=== PATIENT | female | born 1980 | race Asian ===

== ENCOUNTER 2016-07-08 18:17 | Emergency (ER) | payer BC ==
[~2016-07-08] VITALS: Ht 152.4 cm; Wt 70.0 kg
[2016-07-08 18:19] VITALS: BP 158/84; PULSE 74; RESP 15; TEMP 98.1; O2SAT 98
[2016-07-08] MEDS ORDERED: METOCLOPRAMIDE HCL 10 MG/2 ML VIAL IM ONE (19:00)
[2016-07-08] MEDS ORDERED: CYCLOBENZAPRINE HCL 10 MG TAB PO ONE (19:00)
--- NOTE | 2016-07-08 19:00 | PD ---
HPI Chief Complaint: Headache Time Seen by Provider: 18:56 Travel History International Travel<30 days: No Contact w/Intl Traveler<30days: No Traveled to known affect area: No History of Present Illness HPI Patient comes in complaining of right occipital headache that began 5 days ago. Patient denies any trauma, photophobia, phonophobia, change in vision, dizziness, , change in bladder, numbness tingling anywhere, or fever. Patient states that she did have some associated nausea and vomiting that resolved 2 days ago however she continues to have the headache. Headache is constant, but waxes and wanes in intensity and occasionally radiates to her right frontal lobe. Patient has tried using Aleve and ibuprofen with no improvement of her symptoms. Patient denies any history of headaches. Denies any family history of migraines or aneurysms.. PFSH Past Medical History Medical History: Denies Significant Hx Influenza Vaccination: No ?: Not LMP: 06/30/16 Past Surgical History Surgical History: No Previous Surgery Social History Alcohol Use: Yes (occ) Tobacco Use: No Substance Use: No Allergies-Medications (Allergen,Severity, Reaction): Coded Allergies: No Known Allergies (Unverified , 07/08/16) Reported Meds & Prescriptions Reported Meds & Active Scripts Active No Active Prescriptions or Reported Medications Review of Systems Except as stated in HPI: all other systems reviewed are Neg Physical Exam Narrative GENERAL: Well-developed, well nourished, in no acute distress, and non-ill appearing. SKIN: Focused skin assessment warm and dry. HEAD: Atraumatic. Normocephalic. EYES: Pupils equal and round. EOMI. No scleral icterus. No injection or drainage. ENT: No nasal bleeding or discharge. Mucous membranes pink and moist. NECK: Trachea midline. No cervical lymphadenopathy. Supple. No nuclear rigidity. Patient reports tenderness to palpation on the right trapezius muscle near the base of the occipital lobe. No tenderness crepitus or midline cervical spine. RESPIRATORY: No accessory muscle use. No respiratory distress. MUSCULOSKELETAL: No obvious deformities. No clubbing. No cyanosis. No edema. Full range of motion. NEUROLOGICAL: Awake and alert. No obvious cranial nerve deficits. Motor grossly within normal limits. Normal speech. PSYCHIATRIC: Appropriate mood and affect; insight and judgment normal. Data Data Last Documented VS Vital Signs Date Time Temp Pulse Resp B/P Pulse Ox O2 Delivery O2 Flow Rate FiO2 07/08/16 18:19 98.1 74 15 158/84 98 Orders Metoclopramide Inj (Reglan Inj) (07/08/16 19:00) Cyclobenzaprine (Flexeril) (07/08/16 19:00) Ct Brain W/O Iv Contrast(Rout) (07/08/16 ) MDM Medical Decision Making Medical Screen Exam Complete: Yes Emergency Medical Condition: Yes Differential Diagnosis Migraine headache, tension headache, cluster headache, intracranial hemorrhage, mass, other Narrative Course Patient was seen and examined. CT head was ordered. Patient was given a dose of Reglan and Flexeril. Patient signed out to Dr. Thakkar. Please see her documentation for final diagnosis and disposition. Scripts No Active Prescriptions or Reported Meds Robin Goodwin Jul 08, 2016 19:00
--- NOTE | 2016-07-08 19:48 | RADRPT ---
EXAM DATE/TIME: 07/08/2016 19:23 [facility] COMPARISON: No previous studies available for comparison. INDICATIONS : Headaches. RADIATION DOSE: 36.71 CTDIvol (mGy) MEDICAL HISTORY : None SURGICAL HISTORY : None. ENCOUNTER: Initial ACUITY: 1 day PAIN SCALE: 7/10 LOCATION: Bilateral cranial TECHNIQUE: Multiple contiguous axial images were obtained of the head. Using automated exposure control and adj ustment of the mA and/or kV according to patient size, radiation dose was kept as low as reasonably a chievable to obtain optimal diagnostic quality images. FINDINGS: CEREBRUM: The ventricles are normal for age. No evidence of midline shift, mass lesion, hemorrhage or acute in farction. No extra-axial fluid collections are seen. POSTERIOR FOSSA: The cerebellum and brainstem are intact. The 4th ventricle is midline. The cerebellopontine angle i s unremarkable. EXTRACRANIAL: The visualized portion of the orbits is intact. SKULL: The calvaria is intact. No evidence of skull fracture. CONCLUSION: Normal examination. Jaun Randolph Jr., MD on July 08, 2016 at 19:46 Board Certified Radiologist. This report was verified electronically.
[2016-07-08] MEDS ORDERED: KETOROLAC TROMETHAMINE 60 MG/2 ML (IM) VIAL IM ONE (20:15)
--- NOTE | 2016-07-08 20:22 | PD ---
Physical Exam Narrative I, Dr. Thakkar, have reviewed the advance practice practitioner's documentation and am in agreement, met with the patient face to face, made the diagnosis, and the medical decision making was done by me. *My assessment and Findings: Tension headache vs. migraine headache vs. sinus headache 35yo F with no PMH here with right sided headache for about 4-5 days. Pain is from right neck and goes up to occiput and down right shoulder. Pain is worst with neck movement. Pt was given cyclobenzaprine and reglan. CT brain negative. Pt still with pain so toradol 30mg IM given. No focal neurologic deficits on exam. No red flags. No photophobia or nausea currently. Pt reevaluated after toradol and states headache has resolved. Impression is still tension headache. Strict return precautions given. Data Data Last Documented VS Vital Signs Date Time Temp Pulse Resp B/P Pulse Ox O2 Delivery O2 Flow Rate FiO2 07/08/16 18:19 98.1 74 15 158/84 98 Orders Metoclopramide Inj (Reglan Inj) (07/08/16 19:00) Cyclobenzaprine (Flexeril) (07/08/16 19:00) Ct Brain W/O Iv Contrast(Rout) (07/08/16 ) Ketorolac Inj (Toradol Inj) (07/08/16 20:15) MDM Supervised Visit with VALERI: Yes Diagnosis Primary Impression: Headache Qualified Code: G44.209 - Acute non intractable tension-type headache Patient Instructions: General Instructions Departure Forms: Tests/Procedures Additional Instruction: Please follow up with your PMD in 3-7 days. Return to the ED if symptoms worsen. Med/Other Pt SpecificInfo: Prescription(s) given Scripts Acetaminophen (Tylenol)325 Mg [id number] Mg PO Q6H PRN (PAIN SCALE 1 TO 4) #20 TAB Ref 0 Prov:Symone Thakkar DO 07/08/16 Disposition: 01 DISCHARGE HOME Condition: Stable Symone Thakkar DO Jul 08, 2016 20:22
[2016-07-08] MEDS ORDERED: TYLE325T PO (21:12)
== END 2016-07-08 21:55 | disposition home or self-care (01) ==
LOC: NEPD 18:17
DX: R51 Headache (principal)
CPT/HCPCS: 70450; 96372; 99284; J1885; J2765